=== PATIENT | male | born 1980 | race Caucasian/White ===

== ENCOUNTER 2020-10-11 20:32 | Emergency (ER) | payer OTHER | END 2020-10-11 22:00 | disposition left against medical advice (07) | LOC: ER1 20:32 | DX: R07.9 Chest pain, unspecified (principal); Z53.21 Procedure and treatment not carried out due to patient leaving prior to being seen by health care provider | CPT/HCPCS: 93005 ==

== ENCOUNTER 2021-11-22 18:30 | Emergency (ER) | payer OTHER | END 2021-11-22 23:00 | disposition short-term general hospital (02) | LOC: ER1 18:30 | DX: S91.114A Laceration without foreign body of right lesser toe(s) without damage to nail, initial encounter (principal); T14.90XA Injury, unspecified, initial encounter; Z87.891 Personal history of nicotine dependence; Z20.822 Contact with and (suspected) exposure to COVID-19; V29.9XXA Motorcycle rider (driver) (passenger) injured in unspecified traffic accident, initial encounter | CPT/HCPCS: 73590; 73610; 73630; 73700; 90471; 90714; 96365; 96368; 96375; 96376; 99285; J0690; J2270; J2405; U0002 ==

== ENCOUNTER → 2021-12-23 | Outpatient (CLI) | payer OTHER | LOC: KOH-I 16:04 | DX: S92.901D Unspecified fracture of right foot, subsequent encounter for fracture with routine healing (principal) | CPT/HCPCS: 73630; 73650 ==

== ENCOUNTER → 2022-01-05 | Outpatient (CLI) | payer OTHER | LOC: KOH-I 16:14 | DX: S92.811A Other fracture of right foot, initial encounter for closed fracture (principal) | CPT/HCPCS: 73630 ==

== ENCOUNTER → 2022-01-14 | Outpatient (CLI) | payer OTHER | LOC: EMI 08:13 | DX: S86.011A Strain of right Achilles tendon, initial encounter (principal); M67.873 Other specified disorders of tendon, right ankle and foot | CPT/HCPCS: 73721 ==

== ENCOUNTER → 2022-04-21 | Outpatient (CLI) | payer OTHER | LOC: NM 09:02 | DX: R10.11 Right upper quadrant pain (principal); R19.7 Diarrhea, unspecified; R11.0 Nausea; R93.2 Abnormal findings on diagnostic imaging of liver and biliary tract | CPT/HCPCS: 78226; A9537 ==